=== PATIENT | female | born 1985 | race Hispanic/Latino ===

== ENCOUNTER → 2024-09-14 | Day surgery (SDC) | payer OTHER ==
[~2024-09-14] MED LIST: DEXAMETHASONE SOD PHOS INJ 4 MG/ML SDV ONE; DIGESTIVE ENZY220 MG; FENTANYL CITRATE/PF 100MCG/2 ML INJ ONE; HYDROCODONE/APAP 7.5MG-325MG 1 EA TAB ONE; LACTATED RINGER'S 1,000 ML ONE; LIDOCAINE HCL 2% LOCAL INJ 5 ML SDV VIAL INJ ONE; MIDAZOLAM HCL 2 MG/2 ML VIAL ONE; ONDANSETRON HCL INJ 2MG/ML 2ML 2 MG/ML VIAL ONE; PROPOFOL IV EMULSION 10 MG/ML 20 ML VIAL ONE
[2024-09-14 07:43] LABS: BASOPHILS % 0.3 % (0.0-1.0); EOSINOPHILS # (AUTO) 0.2 (0.0-0.4); EOSINOPHILS % 2.8 % (0.0-6.0); HEMOGLOBIN 12.9 g/dL (12.0-16.0); LYMPHOCYTES # (AUTO) 1.7 (1.0-3.2); LYMPHOCYTES % 26.8 % (18.0-39.1); MEAN CORPUSCULAR HEMOGLOBIN 29.8 pg (28-32); MEAN CORPUSCULAR HGB CONC 33.1 g/dL (31-35); MEAN CORPUSCULAR VOLUME 90.1 fL (81-99); MONOCYTES # (AUTO) 0.5 (0.2-0.8); MONOCYTES % 7.7 % (4.4-11.3); NEUTROPHILS % 62.1 % (38.7-80.0); PLATELET COUNT 251 x10e3/uL (140-360); RED BLOOD COUNT 4.33 x10e6/uL (3.6-5.1); RED CELL DISTRIBUTION WIDTH 13.9 % (11.7-14.4); WHITE BLOOD COUNT 6.38 x10e3/uL (4.8-10.8)
[2024-09-14 10:55] VITALS: TEMP 97.4
[2024-09-14] MEDS: HYDROCODONE/APAP 7.5MG-325MG 1 EA TAB PO ONE (11:30)
[2024-09-14 11:50] VITALS: BP 144/71; PULSE 96; RESP 16; O2SAT 97
== END | disposition home or self-care (01) ==
LOC: OR 07:02
PROVIDERS: ATTEND Podiatrist Foot Surgery
DX: M72.2 Plantar fascial fibromatosis (principal); M24.574 Contracture, right foot; M77.31 Calcaneal spur, right foot; M25.774 Osteophyte, right foot; E66.01 Morbid (severe) obesity due to excess calories
CPT/HCPCS: 27687; 29893; 29999; 36415; 85025; J0690; J1100; J2003; J2250; J2405; J2704; J3010; J7121